=== PATIENT | female | born 1970 | race Hispanic/Latino ===

== ENCOUNTER 2024-10-02 14:56 | Emergency (ER) | payer OTHER, SELFPAY ==
[2024-10-02 14:59] VITALS: BP 114/68
[2024-10-02 15:00] VITALS: BP 125/85
--- NOTE | 2024-10-02 15:07 | ED.GENMED ---
History of Present Illness
General
Chief Complaint: Abdominal Symptoms
Time Seen by Provider: 10/02/24 15:00
History of Present Illness
History of Present Illness:
Patient is a 54-year-old woman with no past medical history presenting to the emergency department with abdominal pain. Patient states that she woke up this morning at 9 AM with right upper quadrant abdominal pain. She has had 6 episodes of
nonbloody nonbilious emesis. No diarrhea. No recent travel antibiotics or different foods. No family members with similar symptoms. This is never happened to her before. No history of gallstones. Denies any alcohol use. No chest pain
difficulty breathing.
Phy Exam
Physical Exam
Physical Exam:
GENERAL: in no acute distress
HEENT: normocephalic, extraocular movements intact, dry oral mucosa
NECK: normal inspection
RESPIRATORY: no respiratory distress, clear to auscultation bilaterally
CARDIOVASCULAR: regular rate and rhythm
ABDOMEN/: soft, non-distended, right upper quadrant tenderness to palpation, no rebound or guarding
EXTREMITIES: non-tender, no edema/swelling
NEUROLOGIC: awake and alert, moves all extremities
SKIN: warm
Course
Orders/Labs/Results
Orders:
Orders
10/02/24 15:00
ECG [Electrocardiogram (*1)] Urgent
Reason for Study: Abdominal Pain
EKG- Treatment ONCE
10/02/24 15:07
Complete Blood Count/With Diff Urgent
Comprehensive Metabolic Panel Urgent
Lipase Urgent
0.9% Sodium Chloride 1000 ml [Nss] 1,000 ml IV BOLUS
Ondansetron Injectable [Zofran] 4 mg IV NOW STA
US Abdomen Complete/Upper Urgent
Comment:
Reason For Exam: epigastric, RUQ pain
10/02/24 16:09
CT Abd/pelvis W Iv Cont Urgent
Comment:
Reason For Exam: abdominal pain
Abnormal Lab Results
10/02/24
15:07
WBC 15.3 H 10^3/uL
(4.8-10.8)
Abs Immat Gran (auto) 0.1 H 10^3/uL
(0-0.05)
Absolute Neuts (auto) 11.3 H 10^3/uL
(1.4-6.5)
Absolute Monos (auto) 0.9 H 10^3/uL
(0.1-0.6)
Lymphocytes % 19.2 L %
(20.5-51.1)
BUN 23 H mg/dl
(7-17)
Glucose 103 H mg/dl
(70-99)
Calcium 10.6 H mg/dl
(8.4-10.2)
ALT 37 H U/L
(0-35)
Total Protein 8.3 H g/dl
(6.3-8.2)
10/02/24 15:07
10/02/24 15:07
Vital Signs
Initial and Last Documented VS:
Initial Vital Signs
Pulse Resp Pulse Ox
95 16 100
10/02/24 14:58 10/02/24 14:58 10/02/24 14:58
Last Documented Vital Signs
Temp Pulse Resp BP Pulse Ox
98.2 F 95 19 125/85 100
10/02/24 14:59 10/02/24 15:15 10/02/24 15:15 10/02/24 15:00 10/02/24 15:15
MDM/Problems Addressed
Differential Diagnosis Includes:
Patient is a 54-year-old woman presenting to the emergency department 1 day of right upper quadrant abdominal pain with associated nausea and vomiting. Vitals are unremarkable and exam does show right upper quadrant tenderness. Differential
consists of cholecystitis versus pancreatitis versus viral illness. Could be atypical ACS. Will check blood work give fluids as well as Zofran and obtain ultrasound. EKG obtained per my interpretation with no ST changes.
*Critical Care Note
Total Time (30-74mins, 75-104mins- exclusive of procedures): Not Applicable
Update Note
Update Note:
Blood work is notable for leukocytosis. CMP is grossly unremarkable. Ultrasound negative for cholecystitis or choledocholithiasis. Patient still with abdominal discomfort so we will proceed with CT scan.
On reevaluation patient states that the nausea and vomiting has subsided but now she is having diarrhea. Likely could be viral gastroenteritis.
CT scan consistent with enteritis. Will attempt p.o. challenge. If successful will discharge home.
ED Attending Note
-
Portions of this chart may have been created with voice recognition software.� Occasional wrong word or��sound alike� substitutions may have occurred due to the inherent limitations of voice recognition software.
Discharge Plan
Departure
Patient Disposition: Home (Routine Discharge)
Date of Disposition: 10/02/24
Time of Disposition: 17:44
Patient with high blood pressure during this ER visit?: No
Discharge Problem:
Gastroenteritis
Instructions: Diarrhea in teens and adults, Nausea and Vomiting, Adult (DC)
Prescriptions:
New
ondansetron 4 mg tablet,disintegrating
4 mg PO Q8H PRN (Reason: nausea and vomiting) 3 Days Qty: 5 0RF
Referrals:
NONE,* [Family Provider] -
Activity Restrictions/Additional Instructions:
You have been evaluated in the Emergency Department today for nausea and vomiting. Your evaluation suggests that your symptoms are most likely due to viral illness which will improve on its own with rest and fluids. Remember to drink plenty of
fluids at home.
Please follow up with your primary care physician within two days.
Return to the Emergency Department if you experience worsening or uncontrolled pain, inability to tolerate fluids by mouth, difficulty breathing, fevers 100.4�F or greater, recurrent vomiting, or any other concerning symptoms.
Thank you for choosing us for your care.
Interventions
Interventions:
*Risk Screen - Suicide Last Done: 10/02/24 15:18
*General Assessment Last Done: 10/02/24 14:59
*Neglect/Abuse Screening Last Done: 10/02/24 14:59
HD-Hedcbj-Bgrwpgxdok Assessment Last Done: 10/02/24 15:18
Discharge Date and Time
Print Language: [id number]
[2024-10-02] MEDS: NSS 1000 IV (15:11)
[2024-10-02] MEDS: ZOFRAN 4 MG IV (15:14)
[2024-10-02 15:24] LABS: % Basophils 0.3 % (0-2); % Eosinophils 0.3 % (0-6); % Immature Granulocytes 0.4 % (0-0.5); % Lymphocytes 19.2 % (20.5-51.1); % Monocytes 6.1 % (1.7-9.3); % Neutrophils 73.7 % (42.2-75.2); Absolute Eosinophils 0.1 10^3/uL (0-0.7); Absolute Immature Granulocytes 0.1 10^3/uL (0-0.05); Absolute Lymphocytes 2.9 10^3/uL (1.2-3.4); Absolute Monocytes 0.9 10^3/uL (0.1-0.6); Absolute Neutrophils 11.3 10^3/uL (1.4-6.5); Hematocrit 41.5 % (37.0-47.0); Hemoglobin 14.3 g/dL (12.0-16.0); Mean Corp Hgb Conc. 34.5 g/dL (33.0-37.0); Mean Corpuscular Hgb 29.3 pg (27.0-31.0); Mean Platelet Volume 9.7 fL (7.4-10.4); Nucleated Red Blood Cells % 0 %; Platelet Count 353 10^3/uL (130-400); Red Blood Cell Count 4.88 10^6/uL (4.20-5.40); Red Cell Dist. Width 13.4 % (11.5-14.5); White Blood Cell Count 15.3 10^3/uL (4.8-10.8)
[2024-10-02 15:37] LABS: ALT (SGPT) 37 U/L (0-35); AST (SGOT) 32 U/L (14-36); Albumin 4.9 g/dl (3.5-5.0); Alkaline Phosphatase 94 U/L (38-126); Blood Urea Nitrogen 23 mg/dl (7-17); Calcium 10.6 mg/dl (8.4-10.2); Carbon Dioxide 25 mmol/L (22-30); Chloride 100 mmol/L (98-107); Glucose 103 mg/dl (70-99); Lipase 171 U/L (23-300); Potassium 4.5 mmol/L (3.5-5.1); Sodium 140 mmol/L (135-145); Total Bilirubin 0.3 mg/dl (0.2-1.3); Total Protein 8.3 g/dl (6.3-8.2); eGFR > 60.00
[2024-10-02 16:13] VITALS: BP 113/67
[2024-10-02] MEDS: MOTRIN 800 MG PO (18:00)
== END 2024-10-02 19:15 | disposition home or self-care (01) ==
LOC: EMR 14:56
PROVIDERS: EMERGENCY PHYSICIAN Student in an Organized Health Care Education/Training Program
DX: K52.9 Noninfective gastroenteritis and colitis, unspecified (principal)
CPT/HCPCS: 99285; 96374; 96361; 74177; 76700; 80053; 83690; 85025; 93005; Q9967